=== PATIENT | female | born 1980 | race Caucasian/White ===

== ENCOUNTER 2016-10-19 11:38 | Emergency (ER) | payer OTHER ==
[2016-10-19 12:16] VITALS: BP 145/77
--- NOTE | 2016-10-19 12:43 | UC ---
Skin Complaint HPI - HPI Summary HPI Summary: 36 y/o with PMHX of POS presents to the clinic c/o of a welt on her LF lower leg for the past 3 weeks. She states it is painful and warm to touch. PT denies fever, SOB, chest pain, N/V/D. Patient also reports she was recently Dx with POS and started Metformin this past Saturday, She also started a diet. - History of Current Complaint Chief Complaint: UCSkin Time Seen by Provider: 10/19/16 12:20 Stated Complaint: SKIN WELT Hx Obtained From: Patient Hx Last Menstrual Period: 09/30/15 ?: No Onset/Duration: Sudden Onset, Lasting Days, Still Present Skin Exposure Onset/Duration: Weeks Ago Timing: Constant Onset Severity: Moderate Current Severity: Moderate Pain Intensity: 6 Pain Scale Used: 0-10 Numeric Location: Other - LF lower leg welt painful Character: Swelling, Redness, Painful Aggravating: Touch Associated Signs & Symptoms: Positive: Rash. Negative: Fever - Allergy/Home Medications Allergies/Adverse Reactions: Allergies Allergy/AdvReac Type Severity Reaction Status Date / Time Amoxicillin Allergy Severe Hives Verified 10/19/16 11:44 CI Pigment Blue 63 Allergy Vomiting Verified 10/19/16 11:57 [From Tamiflu] Oseltamivir [From Tamiflu] Allergy Vomiting Verified 10/19/16 11:57 Home Medications: Home Medications Albuterol Sulfate [Proair Respiclick] 108 mcg IN DAILY PRN 10/19/16 [History Confirmed 10/19/16] Beclomethasone Dipropionate (N [Qnasl] 80 mcg NA DAILY 10/19/16 [History Confirmed 10/19/16] Levocetirizine Dihydrochloride [Xyzal Allergy 24Hr] 5 mg PO DAILY 10/19/16 [ History Confirmed 10/19/16] Metformin HCl 500 mg PO DAILY 10/19/16 [History Confirmed 10/19/16] Naltrexone (Bulk) [Naltrexone] 3 mg PO DAILY 10/19/16 [History Confirmed ] medroxyPROGESTERone TAB* [Provera TAB*] 10 mg PO DAILY 10/19/16 [History Confirmed 10/19/16] Review of Systems Constitutional: Negative Skin: Rash - Lf lower leg rash Eyes: Negative ENT: Negative Cardiovascular: Negative Gastrointestinal: Negative Genitourinary: Negative Motor: Negative Neurovascular: Negative Musculoskeletal: Negative Neurological: Negative All Other Systems Reviewed And Are Negative: Yes PMH/Surg Hx/FS Hx/Imm Hx - Additional Past Medical History Additional PMH: Polycistic Ovarian Syndrome Previously Healthy: Yes Endocrine History Of: Denies: Diabetes, Thyroid Disease Cardiovascular History Of: Denies: Cardiac Disorders, Hypertension Respiratory History Of: Reports: Asthma Denies: COPD GI/ History Of: Denies: Ulcer - Surgical History Surgical History: None - Family History Known Family History: Positive: Hypertension, Diabetes - Social History Alcohol Use: Rare Alcohol Amount: about twice a month Substance Use Type: None Smoking Status (MU): Never Smoked Tobacco Physical Exam Triage Information Reviewed: Yes Appearance: Well-Appearing, No Pain Distress, Well-Nourished, Obese Vital Signs: Initial Vital Signs Temp 98.7 F 10/19/16 11:51 Pulse 80 10/19/16 11:51 Resp 16 10/19/16 11:51 BP 145/77 10/19/16 11:51 Pulse Ox 99 10/19/16 11:51 Vital Signs Reviewed: Yes Eyes: Positive: Conjunctiva Clear ENT Exam: Normal ENT: Positive: Hearing grossly normal, Pharynx normal, TMs normal Dental Exam: Normal Dental: Negative: Cervical Lymphadenopathy Neck: Positive: Supple, Nontender, No Lymphadenopathy Respiratory Exam: Normal Respiratory: Positive: Chest non-tender, Normal breath sounds Cardiovascular Exam: Normal Cardiovascular: Positive: RRR, No Murmur, Pulses Normal Abdominal Exam: Normal Abdomen Description: Positive: Nontender, No Organomegaly. Negative: CVA Tenderness (R), CVA Tenderness (L) Musculoskeletal Exam: Normal Musculoskeletal: Positive: Strength Intact Neurological Exam: Normal Psychological Exam: Normal Skin: Positive: rashes - LF lower leg indurated rash with erythema and tenderness to palpation on the later side. about 4cm x 4cm in size. Course/Dx - Course Course Of Treatment: cellulitis of the lateral side of the LF lower leg: indurated rash with erythema and tenderness to palpation on the later side. about 4cm x 4cm in size. Elevated BP: 145/77 bpm. Patient advised on diet modification and decrease salt intake and f/u with PCP for further evaluation and treatment. - Differential Diagnoses - Skin Complaint Differential Diagnoses: Abscess, Cellulitis, Contact Dermatitis, MRSA - Diagnoses Provider Diagnoses: cellulitis of LF lower extremity, elevated Blood pressure Discharge - Discharge Plan Condition: Stable Disposition: HOME Prescriptions: Bacitracin OINT* 22 gm TOPICAL TID #1 tube Sulfamethox/Trimethoprim DS* [Bactrim DS 800/160 TAB*] 1 tab PO BID #20 tab Patient Education Materials: Cellulitis (ED), DASH Eating Plan (ED), Hypertension (ED) Referrals: [facility] [place] [facility] [Outside] - 1 Week No Primary Care Phys,NOPCP [Primary Care Provider] - Additional Instructions: Please take medications as directed. Please decrease salt intake for elevated blood pressure and f/u with your PCP for further evaluation and treatment.
== END 2016-10-19 12:57 | disposition home or self-care (01) ==
LOC: UCEAST 11:38
DX: L03.116 Cellulitis of left lower limb (principal); R03.0 Elevated blood-pressure reading, without diagnosis of hypertension; J45.909 Unspecified asthma, uncomplicated; E66.9 Obesity, unspecified; Z88.1 Allergy status to other antibiotic agents
CPT/HCPCS: 99212; G0463